=== PATIENT | male | born 1975 | race Caucasian/White ===

== ENCOUNTER 2018-02-10 15:27 | Emergency (ER) | payer MEDICAID, OTHER ==
[~2018-02-10] VITALS: Ht 167.6 cm; Wt 93.0 kg
[~2018-02-10 15:27] MED LIST: GUAI120015 PO; PSEU-259 PO
[2018-02-10 15:30] VITALS: BP 115/91
== END 2018-02-10 17:12 | disposition home or self-care (01) ==
LOC: ER 15:28
DX: S06.0X9A Concussion with loss of consciousness of unspecified duration, initial encounter (principal); G89.29 Other chronic pain; F17.200 Nicotine dependence, unspecified, uncomplicated; Z88.0 Allergy status to penicillin; Z88.2 Allergy status to sulfonamides; Z88.1 Allergy status to other antibiotic agents; W01.0XXA Fall on same level from slipping, tripping and stumbling without subsequent striking against object, initial encounter; Y93.89 Activity, other specified; Y92.89 Other specified places as the place of occurrence of the external cause; Y99.8 Other external cause status
CPT/HCPCS: 70450; 99284